=== PATIENT | male | born 1980 | race Caucasian/White ===

== ENCOUNTER 2016-06-04 01:38 | Emergency (ER) | payer BC, OTHER ==
[~2016-06-04] VITALS: Ht 188 cm; Wt 116.8 kg
[~2016-06-04 01:38] MED LIST: CLEOCIN300 MG PO; INDOCIN25 MG PO; LIDODERM 5% P1 PATCH TD; LOPRESSOR100 M1 PO; NAPROSYN500 MG PO; PERCOCET 10/1 TABLET PO; PREDNISONE20 MG PO; PRILOSEC20 MG PO; VALIUM5 MG PO; ZOFRAN ODT8 MG PO
[2016-06-04 02:04] LABS: HEMATOCRIT 39.7 % (38.0-50.0); MCH 30.2 PG (29.0-34.0); MCV 83.9 FL (86-99); MEAN PLAT.VOLUME 10.4 uM^3 (9.0-12.4); PLATELET COUNT 201 K/uL (156-360); RBC DIS.WIDTH-CV 13.3 % (11.8-14.6); RBC DIS.WIDTH-SD 40.1 % (39-53); RED BLOOD COUNT 4.73 M/uL (4.00-5.50)
[2016-06-04 02:10] LABS: WHITE BLOOD COUNT 13.4 K/uL (4.1-10.2)
[2016-06-04 02:15] LABS: CHLORIDE 105 mEq/L (99-109); POTASSIUM 3.8 mEq/L (3.7-5.4); SODIUM 141 mEq/L (136-147)
[2016-06-04 02:16] LABS: GLUCOSE 101 mg/dL (70-99)
[2016-06-04 02:18] LABS: ANION GAP 12 MEQ/L (2-14)
[2016-06-04 02:20] LABS: GFR ESTIMATE (CALCULATED) > 59 mL/min/
[2016-06-04 02:21] LABS: UREA NITROGEN (BUN) 23 mg/dL (9-23)
[2016-06-04 02:26] LABS: TROP-I INTERPRETATION NEGATIVE; TROPONIN-I < 0.01 ng/mL (0.0-0.30)
[2016-06-04 04:05] LABS: TROP-I INTERPRETATION NEGATIVE; TROPONIN-I < 0.01 ng/mL (0.0-0.30)
[2016-06-04] MEDS ORDERED: NAPROSYN500 MG PO (04:18)
[2016-06-04] MEDS ORDERED: MEDROL DOSEPAK4 MG PO (04:18)
[2016-06-04 04:29] VITALS: BP 121/85
== END 2016-06-04 04:30 | disposition home or self-care (01) ==
LOC: EME 01:38
PROVIDERS: Emergency Medicine
DX: R07.89 Other chest pain (principal); F17.200 Nicotine dependence, unspecified, uncomplicated; Z88.0 Allergy status to penicillin; I10 Essential (primary) hypertension; K21.9 Gastro-esophageal reflux disease without esophagitis; Z82.49 Family history of ischemic heart disease and other diseases of the circulatory system
CPT/HCPCS: 71020; 80048; 84484; 85027; 93005; 99281; 99285

== ENCOUNTER 2017-03-27 20:04 | Emergency (ER) | payer OTHER ==
[~2017-03-27] VITALS: Ht 190.5 cm; Wt 115.7 kg
[~2017-03-27 20:04] MED LIST changes: +MEDROL DOSEPAK4 MG PO
[2017-03-27 20:47] LABS: HEMATOCRIT 45.4 % (38.0-50.0); MCH 31.3 PG (29.0-34.0); MCHC 35.2 G/DL (30.0-36.0); MCV 88.7 FL (86-99); PLATELET COUNT 208 K/uL (156-360); RBC DIS.WIDTH-CV 12.6 % (11.8-14.6); RBC DIS.WIDTH-SD 41.3 % (39-53); RED BLOOD COUNT 5.12 M/uL (4.00-5.50); WHITE BLOOD COUNT 8.7 K/uL (4.1-10.2)
[2017-03-27 20:55] LABS: CHLORIDE 110 mEq/L (99-109); POTASSIUM 4.2 mEq/L (3.7-5.4); SODIUM 144 mEq/L (136-147)
[2017-03-27 20:56] LABS: GLUCOSE 95 mg/dL (70-99)
[2017-03-27 21:00] LABS: CREATININE 1.1 mg/dL (0.6-1.3); GFR ESTIMATE (CALCULATED) > 59 mL/min/
[2017-03-27 21:01] LABS: UREA NITROGEN (BUN) 25 mg/dL (9-23)
[2017-03-27 21:56] LABS: TROP-I INTERPRETATION NEGATIVE; TROPONIN-I < 0.01 ng/mL (0.0-0.30)
[2017-03-28] MEDS ORDERED: GABAPENTIN600 MG PO (00:31)
[2017-03-28] MEDS ORDERED: LISINOPRIL10 MG PO (00:31)
[2017-03-28] MEDS ORDERED: PERCOCET 5/31 TABLET PO (00:31)
[2017-03-28 00:36] VITALS: BP 126/78
== END 2017-03-28 00:50 | disposition home or self-care (01) ==
LOC: EME → EDBD 20:04 → EME 20:04
DX: T58 Toxic effect of carbon monoxide (principal); J70.5 Respiratory conditions due to smoke inhalation; X97.XXXA Assault by smoke, fire and flames, initial encounter; Y92.009 Unspecified place in unspecified non-institutional (private) residence as the place of occurrence of the external cause; F17.200 Nicotine dependence, unspecified, uncomplicated; I10 Essential (primary) hypertension; K21.9 Gastro-esophageal reflux disease without esophagitis; F41.9 Anxiety disorder, unspecified; Z88.0 Allergy status to penicillin
CPT/HCPCS: 71020; 80048; 82810; 84484; 85027; 93005; 99281; 99285; J2405

== ENCOUNTER 2017-06-12 03:12 | Inpatient (IN) | payer OTHER ==
[~2017-06-12] VITALS: Ht 188 cm; Wt 119.4 kg
[~2017-06-12 03:12] MED LIST changes: +GABAPENTIN600 MG PO; +LISINOPRIL10 MG PO; +PERCOCET 5/31 TABLET PO
[2017-06-12 03:39] LABS: BASOPHIL (%) 0.4 % (0-1); BASOPHIL COUNT 0.1 K/uL (0-0.1); EOSINOPHIL (%) 2.7 % (0-5); EOSINOPHIL COUNT 0.4 K/uL (0-0.3); HEMATOCRIT 44.2 % (38.0-50.0); HEMOGLOBIN 15.5 G/DL (12.5-16.6); IMMATURE GRANULOCYTE (%) 0.4 % (0.0-0.7); LYMPHOCYTE (%) 9.7 % (15-42); LYMPHOCYTE COUNT 1.3 K/uL (1.0-2.8); MCH 30.5 PG (29.0-34.0); MCHC 35.1 G/DL (30.0-36.0); MCV 86.8 FL (86-99); MONOCYTE (%) 7.3 % (3-12); NEUTROPHIL (%) 79.5 % (45-76); NEUTROPHIL COUNT 10.6 K/uL (1.8-6.4); PLATELET COUNT 159 K/uL (156-360); RBC DIS.WIDTH-CV 12.7 % (11.8-14.6); RED BLOOD COUNT 5.09 M/uL (4.00-5.50); WHITE BLOOD COUNT 13.4 K/uL (4.1-10.2)
[2017-06-12 03:49] LABS: ALBUMIN 4.5 g/dL (3.2-4.8); CHLORIDE 106 mEq/L (99-109); POTASSIUM 3.7 mEq/L (3.7-5.4); SODIUM 141 mEq/L (136-147)
[2017-06-12 03:51] LABS: GLUCOSE 118 mg/dL (70-99)
[2017-06-12 03:52] LABS: TOTAL PROTEIN 7.6 g/dL (6.4-8.3)
[2017-06-12 03:53] LABS: TOTAL BILIRUBIN 0.8 mg/dL (0.0-1.0)
[2017-06-12 03:55] LABS: ALKALINE PHOSPHATASE 75 IU/L (3-129); CREATININE 1.1 mg/dL (0.6-1.3); GFR ESTIMATE (CALCULATED) > 59 mL/min/ (58.99-99999)
[2017-06-12 03:56] LABS: UREA NITROGEN (BUN) 20 mg/dL (9-23)
[2017-06-12 03:57] LABS: AST (GOT) 11 IU/L (2-34)
[2017-06-12 03:58] LABS: ALT (GPT) 25 IU/L (3-49)
[2017-06-12 04:00] LABS: TROP-I INTERPRETATION NEGATIVE; TROPONIN-I 0.01 ng/mL (0.0-0.30)
[2017-06-12 06:30] LABS: PTT 27.7 SEC (25-37)
[2017-06-12 07:52] VITALS: BP 138/87
[2017-06-12 12:12] VITALS: BP 147/90
[2017-06-12 15:47] VITALS: BP 152/59
[2017-06-12 20:00] VITALS: BP 138/73
[2017-06-13 00:11] VITALS: BP 121/70
[2017-06-13 03:59] VITALS: BP 131/79
[2017-06-13 06:30] LABS: HEMATOCRIT 39.4 % (38.0-50.0); MCH 29.3 PG (29.0-34.0); MCHC 32.7 G/DL (30.0-36.0); MCV 89.5 FL (86-99); PLATELET COUNT 168 K/uL (156-360); RBC DIS.WIDTH-CV 12.9 % (11.8-14.6); RBC DIS.WIDTH-SD 42.5 % (39-53); WHITE BLOOD COUNT 12.2 K/uL (4.1-10.2)
[2017-06-13 06:32] LABS: HEMOGLOBIN 12.9 G/DL (12.5-16.6)
[2017-06-13 06:50] LABS: CHLORIDE 104 MEQ/L (99-109); CREATININE 1.2 MG/DL (0.6-1.3); GFR ESTIMATE (CALCULATED) > 59 mL/min/ (58.99-99999); GLUCOSE 109 mg/dL (70-99); MAGNESIUM 2.3 mg/dl (1.3-2.7); SODIUM 138 MEQ/L (136-147); UREA NITROGEN (BUN) 20 mg/dL (9-23)
[2017-06-13 07:44] VITALS: BP 122/58
[2017-06-13 11:41] VITALS: BP 125/76
[2017-06-13 14:53] LABS: APPEARANCE CLEAR ((CLEAR)); BILIRUBIN NEGATIVE; BLOOD SMALL; COLOR YELLOW ((YELLOW)); GLUCOSE (STRIP) NEGATIVE; KETONES NEGATIVE; LEUKOCYTES NEGATIVE; NITRITE NEGATIVE; PROTEIN (STRIP) 30; SPECIFIC GRAVITY 1.027 (1.000-1.030); UROBILINOGEN 0.2 MG/DL (0.2-1.0)
[2017-06-13 14:58] LABS: BACTERIA RARE /HPF; EPITHELIAL CELLS NONE SEEN /HPF; MUCUS TRACE /LPF; RED BLOOD CELLS 0-5 /HPF (0-5); UCUL ADDED? NO; URIC ACID CRYSTALS 2+ /HPF; WHITE BLOOD CELLS 0-5 /HPF (0-5)
[2017-06-13 16:06] VITALS: BP 115/59
[2017-06-13 19:37] VITALS: BP 138/79
[2017-06-14 00:06] VITALS: BP 127/69
[2017-06-14 04:07] VITALS: BP 138/77
[2017-06-14 06:33] LABS: HEMATOCRIT 36.7 % (38.0-50.0); HEMOGLOBIN 12.2 G/DL (12.5-16.6); MCH 29.9 PG (29.0-34.0); MCHC 33.2 G/DL (30.0-36.0); PLATELET COUNT 171 K/uL (156-360); RBC DIS.WIDTH-CV 12.7 % (11.8-14.6); RBC DIS.WIDTH-SD 41.6 % (39-53); RED BLOOD COUNT 4.08 M/uL (4.00-5.50); WHITE BLOOD COUNT 11.9 K/uL (4.1-10.2)
[2017-06-14 06:50] LABS: INTER. NORMALIZED RATIO 1.3
[2017-06-14 07:38] VITALS: BP 118/71
[2017-06-14 09:51] LABS: TROP-I INTERPRETATION NEGATIVE; TROPONIN-I < 0.01 ng/mL (0.0-0.30)
[2017-06-14 12:12] VITALS: BP 116/68
[2017-06-14 15:48] VITALS: BP 124/76
[2017-06-14 20:21] VITALS: BP 121/72
[2017-06-15 00:02] VITALS: BP 118/77
[2017-06-15 04:24] VITALS: BP 125/60
[2017-06-15 06:47] LABS: HEMATOCRIT 38.5 % (38.0-50.0); HEMOGLOBIN 12.8 G/DL (12.5-16.6); MCH 30.1 PG (29.0-34.0); MCHC 33.2 G/DL (30.0-36.0); MCV 90.6 FL (86-99); PLATELET COUNT 201 K/uL (156-360); RBC DIS.WIDTH-CV 12.9 % (11.8-14.6); RBC DIS.WIDTH-SD 42.4 % (39-53); RED BLOOD COUNT 4.25 M/uL (4.00-5.50); WHITE BLOOD COUNT 8.8 K/uL (4.1-10.2)
[2017-06-15 07:17] LABS: CHLORIDE 106 MEQ/L (99-109); CREATININE 0.9 MG/DL (0.6-1.3); GFR ESTIMATE (CALCULATED) > 59 mL/min/ (58.99-99999); GLUCOSE 115 mg/dL (70-99); POTASSIUM 4.1 MEQ/L (3.7-5.4); SODIUM 140 MEQ/L (136-147); UREA NITROGEN (BUN) 16 mg/dL (9-23)
[2017-06-15 08:23] VITALS: BP 132/91
[2017-06-15 16:19] VITALS: BP 132/84
[2017-06-15 23:09] VITALS: BP 149/87
[2017-06-16 04:37] VITALS: BP 149/87
[2017-06-16 06:30] LABS: HEMATOCRIT 40.1 % (38.0-50.0); HEMOGLOBIN 13.2 G/DL (12.5-16.6); MCH 29.7 PG (29.0-34.0); MCHC 32.9 G/DL (30.0-36.0); MCV 90.1 FL (86-99); PLATELET COUNT 240 K/uL (156-360); RBC DIS.WIDTH-CV 12.4 % (11.8-14.6); RBC DIS.WIDTH-SD 40.9 % (39-53); RED BLOOD COUNT 4.45 M/uL (4.00-5.50); WHITE BLOOD COUNT 8.6 K/uL (4.1-10.2)
[2017-06-16 07:43] VITALS: BP 134/79
[2017-06-16 16:04] VITALS: BP 130/77
[2017-06-16 23:24] VITALS: BP 140/92
[2017-06-17 09:06] VITALS: BP 125/83
[2017-06-17] MEDS ORDERED: BACLOFEN10 MG PO (14:25)
[2017-06-17] MEDS ORDERED: PERCOCET 5/31 TABLET PO (14:25)
[2017-06-17] MEDS ORDERED: GABAPENTIN600 MG PO (14:26)
[2017-06-17] MEDS ORDERED: XARELTO15 MG PO (15:05)
[2017-06-17] MEDS ORDERED: XARELTO20 MG PO (15:05)
[2017-06-17] MEDS ORDERED: LISINOPRIL10 MG PO (15:05)
[2017-06-17 16:12] VITALS: BP 141/80
== END 2017-06-17 16:44 | disposition home or self-care (01) | DRG 176 ==
LOC: EME 03:12 → 5SOUTH 05:43 → EDOF 05:43 → ENRESERV 05:46 → 5SOUTH 07:37
PROVIDERS: Emergency Medicine; Hospitalist; Internal Medicine
DX: I26.99 Other pulmonary embolism without acute cor pulmonale (principal); I82.412 Acute embolism and thrombosis of left femoral vein; I82.432 Acute embolism and thrombosis of left popliteal vein; I82.492 Acute embolism and thrombosis of other specified deep vein of left lower extremity; R04.2 Hemoptysis; G89.29 Other chronic pain; M54.40 Lumbago with sciatica, unspecified side; M51.26 Other intervertebral disc displacement, lumbar region; I10 Essential (primary) hypertension; K21.9 Gastro-esophageal reflux disease without esophagitis; F17.210 Nicotine dependence, cigarettes, uncomplicated; D72.829 Elevated white blood cell count, unspecified; R42 Dizziness and giddiness; F14.11 Cocaine abuse, in remission; F41.9 Anxiety disorder, unspecified; Z79.01 Long term (current) use of anticoagulants; Z68.33 Body mass index [BMI] 33.0-33.9, adult; Z82.49 Family history of ischemic heart disease and other diseases of the circulatory system
CPT/HCPCS: 71045; 71275; 80048; 80053; 81003; 83735; 84484; 85025; 85027; 85610; 85730; 90686; 93005; 93306; 93970; 94799; 99281; 99285; J1650; J2270; J3010; J7040; J7512